=== PATIENT | female | born 1980 | race Native Hawaiian/Other Pacific Islander ===

== ENCOUNTER 2020-09-26 10:56 | Outpatient (CLI) | payer OTHER | END 2020-09-26 19:52 | disposition home or self-care (01) | LOC: CT 10:56 | PROVIDERS: ATTEND Family Medicine | DX: R10.9 Unspecified abdominal pain (principal); K92.0 Hematemesis; R63.4 Abnormal weight loss; Z94.4 Liver transplant status; R10.13 Epigastric pain | CPT/HCPCS: Q9963 ==